=== PATIENT | male | born 1965 | race Hispanic/Latino ===

== ENCOUNTER 2018-12-09 16:31 | Observation (INO) | payer OTHER ==
[~2018-12-09] VITALS: Ht 195.6 cm; Wt 207.3 kg
[2018-12-09] MEDS ORDERED: VANCOMYCIN 1GM/NS 250 ML 250 ML IV ONE ×3 (16:46→17:15)
[2018-12-09] MEDS ORDERED: PIPER-TAZ 3.375 GM 50 ML IV STA (16:46)
[2018-12-09] MEDS ORDERED: ASPIRIN 81 MG CHEW TAB PO ONE ×2 (17:00→17:15)
[2018-12-09] MEDS ORDERED: METOPROLOL TARTRATE 25 MG TAB PO ONE (17:15)
[2018-12-09] MEDS ORDERED: LEVOFLOXACIN 750MG/D5W 150ML 150 ML IV SCH (17:15)
[2018-12-09] MEDS ORDERED: LEVOFLOXACIN 750MG/D5W 150ML 150 ML IV ONE (17:15)
[2018-12-09] MEDS ORDERED: ONDANSETRON HCL INJ 2MG/ML 2ML 2 MG/ML VIAL IV PRN (17:15)
[2018-12-09] MEDS ORDERED: VANCOMYCIN 1GM/NS 250 ML 250 ML IV SCH (17:15)
[2018-12-09] MEDS ORDERED: MORPHINE SULFATE 2 MG/ML SYR 1ML IV PRN (17:15)
[2018-12-09] MEDS ORDERED: ENOXAPARIN SODIUM INJ 100 MG/ML SYR SC ONE (17:30)
[2018-12-09 17:37] LABS: BASOPHILS # (AUTO) 0.1 (0.0-0.1); BASOPHILS % 0.6 % (0.0-1.0); EOSINOPHILS # (AUTO) 0.2 (0.0-0.4); EOSINOPHILS % 2.8 % (0.0-6.0); HEMATOCRIT 44.5 % (38.2-49.6); HEMOGLOBIN 14.7 g/dL (14.0-18.0); LYMPHOCYTES # (AUTO) 1.6 (1.0-3.2); LYMPHOCYTES % 18.5 % (18.0-39.1); MEAN CORPUSCULAR HEMOGLOBIN 31.6 pg (28-32); MEAN CORPUSCULAR VOLUME 95.7 fL (81-99); MONOCYTES # (AUTO) 0.8 (0.2-0.8); MONOCYTES % 9.6 % (4.4-11.3); NEUTROPHILS # (AUTO) 5.8 (2.1-6.9); NEUTROPHILS % 67.8 % (38.7-80.0); PLATELET COUNT 171 x10e3/uL (140-360); RED BLOOD COUNT 4.65 x10e6/uL (4.3-5.7); RED CELL DISTRIBUTION WIDTH 12.4 % (11.7-14.4)
[2018-12-09 17:38] LABS: BILIRUBIN,URINE NEGATIVE (NEGATIVE); CLARITY,URINE SL CLOUDY (CLEAR); KETONES,URINE NEGATIVE (NEGATIVE); LEUKOCYTE ESTERASE ,URINE NEGATIVE (NEGATIVE); NITRITE,URINE NEGATIVE (NEGATIVE); PROTEIN,URINE DIPSTICK NEGATIVE (NEGATIVE); URINE UROBILINOGEN 0.2 mg/dL (0.2 - 1)
[2018-12-09 17:44] LABS: COLOR,URINE STRAW (YELLOW)
[2018-12-09] MEDS ORDERED: MORPHINE SULFATE INJ 4 MG/ML INJ 1ML IV PRN (17:45)
[2018-12-09 17:46] LABS: INR 0.97; PROTHROMBIN TIME 13.4 seconds (11.9-14.5)
[2018-12-09 17:47] LABS: PARTIAL THROMBOPLASTIN TIME 28.2 seconds (23.8-35.5)
[2018-12-09 17:54] LABS: ALANINE AMINOTRANSFERASE 36 IU/L (0-55); ALBUMIN 3.4 g/dL (3.5-5.0); ALBUMIN/GLOBULIN RATIO 0.9 (0.8-2.0); ALKALINE PHOSPHATASE 41 IU/L (40-150); ANION GAP 13.1 mmol/L (8-16); BLOOD UREA NITROGEN 9 mg/dL (7-26); BUN/CREATININE RATIO 9 (6-25); CALCIUM 9.7 mg/dL (8.4-10.2); CARBON DIOXIDE 28 mmol/L (22-29); CHLORIDE 104 mmol/L (98-107); CREATINE KINASE 75 IU/L (30-200); CREATININE, SERUM 0.96 mg/dL (0.72-1.25); EST GLOMERULAR FILTRATION RATE > 60 ML/MIN (60-); GLUCOSE 95 mg/dL (74-118); POTASSIUM 4.1 mmol/L (3.5-5.1); SODIUM 141 mmol/L (136-145)
[2018-12-09 18:01] LABS: BACTERIA,URINE MODERATE /HPF; EPITHELIAL CELLS,URINE FEW /LPF; RBC,URINE 0-5 /HPF (0-5)
[2018-12-09 18:03] LABS: B-TYPE NATRIURETIC PEPTIDE2 32.7 pg/mL (0-100)
--- NOTE | 2018-12-09 19:30 | Diagnostic Imaging Report ---
EXAMINATION: CHEST SINGLE (NOT PORTABLE) INDICATION: Cellulitis ^ERMD ORDER ^[id number] ^191 ^Y COMPARISON: None FINDINGS: TUBES and LINES: None. LUNGS: Perihilar peribronchial hazy opacity could be due to bronchitis. Likely minimal atelectasis at the left lung base. PLEURA: No pleural effusion or pneumothorax. HEART AND MEDIASTINUM: The cardiomediastinal silhouette is unremarkable. BONES AND SOFT TISSUES: No acute osseous lesion. Soft tissues are unremarkable. UPPER ABDOMEN: No free air under the diaphragm. IMPRESSION: Perihilar peribronchial hazy opacity could be due to bronchitis. Likely minimal atelectasis at the left lung base Signed by: Dr. Shaquille Bhardwaj M.D. on 12/09/2018 7:27 PM
--- NOTE | 2018-12-09 20:32 | NUR ---
PER DR. SHERRIE COOPER, PT ADMISSION STATUS MAY BE CHANGED TO OBS
[2018-12-09] MEDS: SODIUM CHLORIDE 0.9% 1000ML 1,000 ML IV SCH ×2 (21:11→23:14)
[2018-12-09] MEDS ORDERED: ASPIRIN 81 MG ENTERIC COATED PO ONE (21:25)
[2018-12-09] MEDS: ENOXAPARIN SODIUM INJ 100 MG/ML SYR SC SCH (21:28)
[2018-12-09] MEDS: FAMOTIDINE 20 MG/2 ML VIAL IV SCH (21:29)
--- NOTE | 2018-12-09 21:31 | NUR ---
SPOKE TO RYLIE WITH [facility]. CONFIRMED BARIATRIC BED/AIR MATTRESS/WITH [facility] # [id number]. PM NURSE MADE AWARE CONCERNING BED DELIVERY REQUESTED. AWAITING RETURN CALL FROM [facility] TO SEE IF DELIVERY CAN BE DONE TONIGHT.
--- NOTE | 2018-12-09 21:53 | NUR ---
PER DON WITH [facility] BED WILL BE DELIVERED TONIGHT
[2018-12-09 23:00] VITALS: BP 136/82
[2018-12-09 23:09] VITALS: BP 138/82
--- NOTE | 2018-12-09 23:09 | NUR ---
SPOKE WITH [facility] WITH [facility]. BED CANCELLED PER PATIENT REQUEST @[id number]. CONFIRMATION# [id number]. SPOKE TO PM NURSE YULISSA TO HAVE NURSE CANCEL RENTAL ORDER.
[2018-12-09 23:10] VITALS: BP 138/82
[2018-12-10 01:00] LABS: CREATINE KINASE MB 1.4 ng/mL (0-5.0)
[2018-12-10 04:00] VITALS: BP 133/89
[2018-12-10] MEDS: FAMOTIDINE 20 MG/2 ML VIAL IV SCH (04:21)
[2018-12-10] MEDS: ENOXAPARIN SODIUM INJ 100 MG/ML SYR SC SCH (04:21)
[2018-12-10 05:06] LABS: BASOPHILS % 0.5 % (0.0-1.0); EOSINOPHILS # (AUTO) 0.3 (0.0-0.4); EOSINOPHILS % 3.1 % (0.0-6.0); HEMATOCRIT 41.8 % (38.2-49.6); HEMOGLOBIN 13.7 g/dL (14.0-18.0); LYMPHOCYTES # (AUTO) 1.5 (1.0-3.2); LYMPHOCYTES % 17.9 % (18.0-39.1); MEAN CORPUSCULAR HEMOGLOBIN 31.6 pg (28-32); MEAN CORPUSCULAR HGB CONC 32.8 g/dL (31-35); MEAN CORPUSCULAR VOLUME 96.5 fL (81-99); MONOCYTES # (AUTO) 0.9 (0.2-0.8); MONOCYTES % 10.8 % (4.4-11.3); NEUTROPHILS # (AUTO) 5.5 (2.1-6.9); PLATELET COUNT 171 x10e3/uL (140-360); RED BLOOD COUNT 4.33 x10e6/uL (4.3-5.7); RED CELL DISTRIBUTION WIDTH 12.4 % (11.7-14.4)
[2018-12-10 05:47] LABS: ALANINE AMINOTRANSFERASE 32 IU/L (0-55); ALBUMIN 2.9 g/dL (3.5-5.0); ALBUMIN/GLOBULIN RATIO 0.8 (0.8-2.0); ALKALINE PHOSPHATASE 36 IU/L (40-150); ANION GAP 12.6 mmol/L (8-16); BLOOD UREA NITROGEN 9 mg/dL (7-26); BUN/CREATININE RATIO 11 (6-25); CALCIUM 8.4 mg/dL (8.4-10.2); CARBON DIOXIDE 26 mmol/L (22-29); CHLORIDE 103 mmol/L (98-107); CHOL/HDL RATIO 5.5 (3.9-4.7); CHOLESTEROL 116 MD/DL (0-199); CREATININE, SERUM 0.82 mg/dL (0.72-1.25); EST GLOMERULAR FILTRATION RATE > 60 ML/MIN (60-); GLUCOSE 96 mg/dL (74-118); HDL CHOLESTEROL 21 MG/DL (40-60); LDL CHOLESTEROL 79 MG/DL (60-130); PHOSPHORUS 3.1 MG/DL (2.3-4.7); POTASSIUM 3.6 mmol/L (3.5-5.1); SODIUM 138 mmol/L (136-145); TRIGLYCERIDES 79 MG/DL (0-149)
[2018-12-10 07:20] LABS: CREATINE KINASE MB 1.4 ng/mL (0-5.0)
[2018-12-10 07:25] VITALS: BP 136/79
[2018-12-10] MEDS ORDERED: FAMOTIDINE 20 MG/2 ML VIAL IV SCH (09:00)
[2018-12-10] MEDS ORDERED: POTASSIUM CHLORIDE 10MEQ EA PO ONE (09:30)
[2018-12-10] MEDS ORDERED: FUROSEMIDE INJ 10 MG/ML 4 ML VIAL IV ONE (09:30)
[2018-12-10 10:31] VITALS: BP 136/79
[2018-12-10] MEDS ORDERED: VANCOMYCIN 1GM/NS 250 ML 250 ML IV SCH (11:15)
[2018-12-10 11:18] VITALS: BP 184/101
[2018-12-10] MEDS ORDERED: CLINDAMYCIN HC150 MG PO (11:44)
[2018-12-10] MEDS ORDERED: POTASSIUM CHLO20 ME1 PO (11:45)
[2018-12-10] MEDS ORDERED: LASIX40 MG PO (11:45)
[2018-12-10] MEDS ORDERED: LOPRESSOR25 MG PO (11:46)
--- NOTE | 2018-12-10 20:00 | Consultation ---
DATE OF CONSULTATION: 12/10/2018 Cardiology Consultation REQUESTING PHYSICIAN: Watson Rodriguez MD. REASON FOR CONSULTATION: Atrial fibrillation. HISTORY OF PRESENT ILLNESS: This is a 53-year-old man with hypertension, morbid obesity and sleep apnea, who presents with complaints of right leg swelling and erythema. He reports that he noted this on Thursday and therefore presented to the ER for further evaluation. He denies any chest pain, shortness of breath, palpitations, orthopnea, or PND. On evaluation in the ER, he was noted to be in atrial fibrillation. Cardiology was therefore consulted for further recommendations. He denied any chest pain, shortness of breath, palpitations, orthopnea or PND. REVIEW OF SYSTEMS: Negative except as per HPI. PAST MEDICAL HISTORY: 1. Hypertension. 2. Sleep apnea. 3. Morbid obesity. PAST SURGICAL HISTORY: 1. Knee surgery. 2. Tonsillectomy. ALLERGIES: 1. PENICILLIN. 2. SULFA. MEDICATIONS: Please see medication list. SOCIAL HISTORY: Denies tobacco, alcohol or illicit drugs. FAMILY HISTORY: Pertinent for brother with an unspecified arrhythmia and father with five vessel CABG. PHYSICAL EXAMINATION: VITAL SIGNS: Temperature 97 degrees, pulse 80, respiratory rate 16, blood pressure 136/79, oxygen saturation 95% on room air. GENERAL: Morbidly obese gentleman in no acute distress. HEENT: Normocephalic, atraumatic. Pupils are equal. No scleral icterus. NECK: Supple. No thyromegaly or cervical lymphadenopathy. No carotid bruits. LUNGS: Clear to auscultation bilaterally. No wheezes or crackles. CARDIOVASCULAR: Normal rate, irregular rhythm. No murmur. Normal S1, S2. ABDOMEN: Soft, nontender. EXTREMITIES: Right leg markedly swollen with erythema. NEUROLOGIC: Nonfocal exam. LABORATORY DATA: WBC 8.27, hemoglobin 13.7, hematocrit 41.8, platelets 171. Sodium 138, potassium 3.6, chloride 103, CO2 of 26, BUN 9, creatinine 0.82. Troponin 0.093. LDL 73, HDL 21, cholesterol 116, triglycerides 79. EKG; atrial fibrillation. IMPRESSION: 1. Right lower extremity cellulitis. 2. Atrial fibrillation. 3. Hypertension. 4. Obstructive sleep apnea. 5. Morbid obesity. RECOMMENDATIONS: 1. Continue metoprolol for rate control. The patient's CHADS-VASc score is only for hypertension. However, this is his 1st episode of atrial fibrillation, recommend we start patient on Eliquis with plan for MIKE cardioversion as an outpatient as he is well rate controlled at this time. Given his risk factors, would recommend outpatient nuclear stress test for further evaluation. We will review the patient's echocardiogram. 2. Antibiotics per primary service. 3. Blood pressure is for the most part, well controlled. Thank you for this consult. We will continue to follow. Teresa Wright MD ABS/MODL /[id number]
--- NOTE | 2018-12-10 20:05 | Discharge Summary ---
The patient requests to be discharged home today. The patient has a photo shoot where he is playing [employer]. FINAL DIAGNOSES: 1. Paroxysmal atrial fibrillation. 2. Right lower extremity cellulitis. 3. Bilateral lower extremity lymphedema. 4. History of chronic venous stasis of the lower extremity. SUMMARY: The patient is a 53-year-old male came to the hospital with right lower extremity cellulitis. The patient's cellulitis is secondary to increase in lymphedema. The patient is also found to have atrial fibrillation, rate in the 80 to 90, now in normal sinus rhythm. The patient does not want to have this evaluated at this time. He does want antibiotic and diuretic. The patient will follow up with his family doctor. I discussed with the patient regarding possibility for stroke, etc., but the patient is stating that he really want to go home and that he respect the medical recommendation, but he does want to go home and see his family physician on Thursday. The patient is stable and discharged home today. DISCHARGE MEDICATIONS: Lopressor 12.5 mg twice a day, Lasix 40 mg daily, potassium 20 mEq daily, and clindamycin 300 mg 3 times a day for 10 days. The patient is stable. He will see his family doctor in approximately a few days on Thursday recommended. MD MARISELA Nam/FABIANO /[id number]
== END 2018-12-10 12:05 | disposition home or self-care (01) ==
LOC: ER 16:37 → ERHOLD 17:15 → INTOOBSV 17:15 → IMCU 22:50
PROVIDERS: ADMIT Internal Medicine; ATTEND Internal Medicine
DX: L03.115 Cellulitis of right lower limb (principal); I48.0 Paroxysmal atrial fibrillation; I89.0 Lymphedema, not elsewhere classified; I87.2 Venous insufficiency (chronic) (peripheral); G47.30 Sleep apnea, unspecified; I10 Essential (primary) hypertension; Z88.0 Allergy status to penicillin; Z88.2 Allergy status to sulfonamides; G47.33 Obstructive sleep apnea (adult) (pediatric); E66.01 Morbid (severe) obesity due to excess calories; Z68.43 Body mass index [BMI] 50.0-59.9, adult
CPT/HCPCS: 36415; 71045; 80053 ×2; 80061; 81001; 82550 ×2; 82553 ×2; 83605 ×2; 83735; 83880; 84100; 84443; 84484 ×2; 85025 ×2; 85610; 85730; 87040; 87086; 93005; 93306; 93970; 99284; G0378 ×2; J1650 ×2; J1940; J3370 ×2; J7030